=== PATIENT | female | born 1985 | race Caucasian/White ===

== ENCOUNTER 2018-03-17 09:36 | Inpatient (IN) | payer OTHER ==
[~2018-03-17] VITALS: Ht 152.4 cm; Wt 52.5 kg
--- NOTE | 2018-03-17 10:04 | NUR ---
PT REPORTS TO ED FOR [place], NECK AND BACK STIFFNESS. PAIN RESTRICTS MOVEMENT OF NECK. PT REPORTS WORSENING SYMPTOMS OVER LAST 24 HRS. RECENT TRAVEL FROM [place] FOR WORK. ISO DROPLET PRECAUTIONS IN PLACE. ALL OTHER CONCERNS ADRESSED. AWAITING ORDERS.
[2018-03-17] MEDS ORDERED: SUMATRIPTAN 6MG/0.5ML SQ ONE ×2 (10:08→10:30)
[2018-03-17] MEDS ORDERED: METOCLOPRAMIDE 5 MG/ML, 2ML ONE (10:08)
[2018-03-17] MEDS ORDERED: DIPHENHYDRAMINE 50 MG/ML, 1ML ONE (10:08)
[2018-03-17] MEDS ORDERED: METOCLOPRAMIDE 5 MG/ML, 2ML IVPush ONE (10:30)
[2018-03-17] MEDS ORDERED: DIPHENHYDRAMINE 50 MG/ML, 1ML IVPush ONE (10:30)
[2018-03-17 10:32] LABS: BASOPHILS # (AUTO) 0.02 x10^3/uL (0-0.1); BASOPHILS % (AUTO) 0 % (0-1); EOSINOPHILS % (AUTO) 0 % (1-7); LYMPHOCYTES # (AUTO) 1.29 x10^3/uL (1-3.4); LYMPHOCYTES % (AUTO) 15 % (22-44); MD NO; MEAN CORPUSCULAR HEMOGLOBIN 32.3 pg (27.0-34.8); MEAN CORPUSCULAR HGB CONC 34.5 g/dL (32.4-35.8); MEAN CORPUSCULAR VOLUME 93.7 fL (80-100); MONOCYTES # (AUTO) 0.41 x10^3/uL (0.2-0.8); MONOCYTES % (AUTO) 5 % (2-9); NEUTROPHILS % (AUTO) 81 % (42-75); PLATELET COUNT 253 x10^3/uL (130-400); RED BLOOD COUNT 3.97 x10^6/uL (3.82-5.3); RED CELL DISTRIBUTION WIDTH 13.4 % (9.6-15.2)
[2018-03-17 10:42] LABS: ALBUMIN 4.5 g/dL (3.4-5.0); ANION GAP 8 mmol/L (5-15); CALCIUM 9.4 mg/dL (8.5-10.1); CHLORIDE 107 mmol/L (98-107); CREATININE 0.79 mg/dL (0.55-1.02)
[2018-03-17] MEDS ORDERED: SODIUM CHLORIDE FLUSH 10ML SYR IVF ONE (11:00)
--- NOTE | 2018-03-17 11:12 | NUR ---
PT RESTING ON GURNEY. STATES NO PAIN RELIEF FROM MEDS GIVEN. AWAITING CT AND LAB RESULTS. ALL CONCERNS ADRESSED.
[2018-03-17 11:59] LABS: RAPID INFLUENZA A Negative (Negative); RAPID INFLUENZA B Negative (Negative)
[2018-03-17] MEDS ORDERED: LIDOCAINE-MPF 1%, 5ML ONE (12:38)
--- NOTE | 2018-03-17 13:02 | NUR ---
ROOM SET UP AND ERPA TO BEDSIDE FOR LP. CONSENT SIGNED. ALL CONCERNS ADRESSED. PT TOLERATED PROCEDURE WELL.
[2018-03-17 13:24] LABS: GLUCOSE, CSF 59 mg/dL (40-80); TOTAL PROTEIN,CSF 111 mg/dL (15-45)
[2018-03-17] MEDS ORDERED: DEXAMETHASONE 4 MG/ML, 1ML ONE (14:21)
[2018-03-17] MEDS ORDERED: CEFTRIAXONE PMX 1GM/50ML 50 ML ONE (14:21)
[2018-03-17] MEDS ORDERED: CEFTRIAXONE PMX 2GM/50ML 50 ML IV ONE (14:30)
[2018-03-17] MEDS ORDERED: CEFTRIAXONE PMX 2GM/50ML 50 ML ONE (14:36)
--- NOTE | 2018-03-17 14:44 | NUR ---
PT RESTING ON [place]. ALL CONCERNS ADRESSED. PT DENIES NEED FOR PAIN MEDS AT THIS TIME.
[2018-03-17] MEDS ORDERED: DEXAMETHASONE 4 MG/ML, 1ML IVPush ONE (15:00)
--- NOTE | 2018-03-17 15:12 | NUR ---
REPORT TO YENNY CHEATHAM
[2018-03-17] MEDS ORDERED: VANCOMYCIN PER PHARMACY MC PRN (15:30)
[2018-03-17] MEDS ORDERED: PROMETHAZINE 25 MG/ML, 1ML IM PRN (16:00)
[2018-03-17] MEDS ORDERED: ONDANSETRON ODT 4 MG PO PRN (16:00)
[2018-03-17] MEDS ORDERED: ONDANSETRON 2MG/ML, 2ML IVPush PRN (16:00)
[2018-03-17] MEDS ORDERED: GADOBUTROL 7.5 MMOL/7.5 ML PFS ONE (16:21)
[2018-03-17 16:44] VITALS: BP 138/73
[2018-03-17] MEDS ORDERED: PHARMACOKINETIC MONITORING MC PRN (17:00)
[2018-03-17] MEDS: MORPHINE SULFATE 4 MG/ML, 1ML IVPush PRN ×2 (17:28→22:21)
[2018-03-17] MEDS: DEXAMETHASONE 4 MG/ML, 1ML IV SCH ×2 (17:30→22:03)
[2018-03-17] MEDS: SODIUM CHLORIDE 0.9% IV SCH ×2 (17:33→23:50)
[2018-03-17] MEDS: ACYCLOVIR IV SCH ×2 (17:33→23:50)
[2018-03-17] MEDS: SODIUM CHLORIDE 0.9% 1,000 ML IV SCH (17:33)
[2018-03-17 18:22] LABS: HCT (SEDRATE) 38.2 % (34.6-47.8)
[2018-03-17 18:54] VITALS: BP 117/74
[2018-03-17] MEDS: VANCOMYCIN PMX 1GM/200ML 200 ML IV SCH (19:00)
[2018-03-17] MEDS: ACETAMINOPHEN 325 MG TABLET PO PRN (22:21)
[2018-03-18] MEDS: VANCOMYCIN PMX 1GM/200ML 200 ML IV SCH ×2 (01:15→09:07)
[2018-03-18] MEDS: CEFTRIAXONE PMX 2GM/50ML 50 ML IV SCH ×2 (02:23→13:56)
[2018-03-18 03:33] VITALS: BP 95/61
[2018-03-18] MEDS: DEXAMETHASONE 4 MG/ML, 1ML IV SCH ×3 (03:43→15:52)
[2018-03-18] MEDS: ACETAMINOPHEN 325 MG TABLET PO PRN ×4 (03:57→23:05)
[2018-03-18] MEDS: SODIUM CHLORIDE 0.9% 1,000 ML IV SCH ×3 (03:57→23:05)
[2018-03-18 06:05] LABS: BASOPHILS # (AUTO) 0.02 x10^3/uL (0-0.1); BASOPHILS % (AUTO) 0 % (0-1); EOSINOPHILS % (AUTO) 0 % (1-7); LYMPHOCYTES # (AUTO) 0.79 x10^3/uL (1-3.4); LYMPHOCYTES % (AUTO) 8 % (22-44); MD NO; MEAN CORPUSCULAR HEMOGLOBIN 32.6 pg (27.0-34.8); MEAN CORPUSCULAR HGB CONC 34.7 g/dL (32.4-35.8); MEAN CORPUSCULAR VOLUME 93.9 fL (80-100); MEAN PLATELET VOLUME 8.3 fL (7.4-10.4); MONOCYTES % (AUTO) 1 % (2-9); NEUTROPHILS # (AUTO) 8.58 x10^3/uL (1.8-6.8); NEUTROPHILS % (AUTO) 91 % (42-75); PLATELET COUNT 224 x10^3/uL (130-400); RED BLOOD COUNT 3.68 x10^6/uL (3.82-5.3); RED CELL DISTRIBUTION WIDTH 13.8 % (9.6-15.2)
[2018-03-18 06:15] LABS: ALBUMIN 3.5 g/dL (3.4-5.0); ANION GAP 8 mmol/L (5-15); CALCIUM 8.7 mg/dL (8.5-10.1); CHLORIDE 110 mmol/L (98-107)
[2018-03-18 06:20] LABS: ALANINE AMINOTRANSFERASE 15 U/L (12-78); ALKALINE PHOSPHATASE 53 U/L (45-117); BILIRUBIN,TOTAL 0.5 mg/dL (0.2-1.0); CREATININE 0.54 mg/dL (0.55-1.02); TOTAL PROTEIN 6.6 g/dL (6.4-8.2)
[2018-03-18] MEDS: SODIUM CHLORIDE 0.9% IV SCH ×3 (07:41→23:05)
[2018-03-18] MEDS: ACYCLOVIR IV SCH ×3 (07:41→23:05)
[2018-03-18 08:03] VITALS: BP 115/69
[2018-03-18] MEDS: MORPHINE SULFATE 4 MG/ML, 1ML IVPush PRN (09:07)
[2018-03-18 13:38] VITALS: BP 105/63
[2018-03-18 19:34] VITALS: BP 111/74
[2018-03-18] MEDS: LACTOBACILLUS CHEW TABLET PO SCH (20:49)
[2018-03-19 02:47] VITALS: BP 99/62
[2018-03-19] MEDS: ACETAMINOPHEN 325 MG TABLET PO PRN ×2 (03:58→10:18)
[2018-03-19] MEDS: SODIUM CHLORIDE 0.9% 1,000 ML IV SCH ×3 (07:55→23:29)
[2018-03-19 08:35] VITALS: BP 113/76
[2018-03-19] MEDS: SODIUM CHLORIDE 0.9% IV SCH ×3 (08:51→23:29)
[2018-03-19] MEDS: ACYCLOVIR IV SCH ×3 (08:51→23:29)
[2018-03-19] MEDS: LACTOBACILLUS CHEW TABLET PO SCH ×2 (08:51→21:05)
[2018-03-19] MEDS ORDERED: OXYcodone/APAP 10/325MG TABLET PO PRN (09:30)
[2018-03-19 14:35] VITALS: BP 124/72
[2018-03-19 21:05] VITALS: BP 116/74
[2018-03-20 03:13] VITALS: BP 117/77
[2018-03-20] MEDS: ACETAMINOPHEN 325 MG TABLET PO PRN (07:49)
[2018-03-20] MEDS ORDERED: VALACYCLOVIR 500MG TABLET PO SCH (08:00)
[2018-03-20] MEDS: LACTOBACILLUS CHEW TABLET PO SCH (08:02)
[2018-03-20 08:20] VITALS: BP 126/84
[2018-03-20] MEDS ORDERED: VALA500T PO (10:08)
[2018-03-20] MEDS ORDERED: ONDA4TAB13 PO (10:08)
[2018-03-20] MEDS ORDERED: ACET325T14 PO (10:08)
== END 2018-03-20 11:00 | disposition home or self-care (01) | DRG 75 ==
LOC: ED 12:39 → EDIP 14:11 → 4NOR 16:33 → DCLOUNGE 03-20 10:55
PROVIDERS: ADMIT Internal Medicine; ATTEND Internal Medicine
PROC: 009U3ZX Drainage of Spinal Canal, Percutaneous Approach, Diagnostic (ICD-10-PCS; principal; 2018-03-17)
DX: B00.3 Herpesviral meningitis (principal); R29.1 Meningismus; R73.9 Hyperglycemia, unspecified; Z88.8 Allergy status to other drugs, medicaments and biological substances; Z80.0 Family history of malignant neoplasm of digestive organs; Z80.1 Family history of malignant neoplasm of trachea, bronchus and lung; Z80.3 Family history of malignant neoplasm of breast; Z80.8 Family history of malignant neoplasm of other organs or systems; Z82.49 Family history of ischemic heart disease and other diseases of the circulatory system
CPT/HCPCS: 36415; 70450; 70553; 80048; 80053; 80202; 82040; 82945; 84145; 84157; 85025; 85651; 86140; 87040; 87070; 87205; 87252; 87400; 87529; 87806; 89051; 96372; 96374; 96375; 99285; A9585; G0378; J0133; J0696; J1100; J3370; G0475; J1200; J2765; J3030; J7030